=== PATIENT | female | born 1955 | race Two or more races ===

== ENCOUNTER 2023-02-12 21:15 | Emergency (ER) | payer OTHER, MEDICAID ==
[~2023-02-12] VITALS: Ht 162.6 cm; Wt 95.5 kg
[2023-02-12 21:23] VITALS: BP 145/69; PULSE 90; RESP 20; TEMP 99
[2023-02-12] MEDS ORDERED: SODIUM CHLORIDE 0.9% 1,000 ML IV ONE (22:30)
[2023-02-12] MEDS ORDERED: cefTRIAXone 1GM/50ML D5W 50 ML IV ONE (22:30)
[2023-02-12] MEDS ORDERED: ACETAMINOPHEN 325 MG TAB PO ONE (22:30)
[2023-02-12 22:45] LABS: Basophils # (auto) 0 10 ^3/uL (0-0.2); Basophils % (auto) 0.2 % (0.0-2.0); Eosinophils # (auto) 0.1 10 ^3/uL (0-0.8); Eosinophils % (auto) 1.3 % (0.0-7.0); Hematocrit 41.2 % (36.0-46.0); Hemoglobin 13.8 g/dL (12.2-16.2); Lymphocytes # (auto) 1.4 10 ^3/uL (0.4-5.4); Lymphocytes % (auto) 12.6 % (10.0-50.0); Mean Corpuscular Hgb Conc. 33.6 g/dL (32.0-36.0); Mean Corpuscular Volume 89.3 fL (80.0-100.0); Monocytes # (auto) 1.4 10 ^3/uL (0-1.3); Neutrophils # (auto) 7.9 10 ^3/uL (1.6-8.6); Neutrophils % (auto) 72.9 % (37.0-80.0); Red Blood Cells 4.62 10^6/uL (4.0-5.20); Red Cell Distribution Width 13.8 % (11.8-14.3); White Blood Cell 10.8 10^3/uL (4.4-10.8)
[2023-02-12 22:46] LABS: Urine Bacteria NONE SEEN /hpf (None Seen); Urine Blood Negative /uL (Negative); Urine Clarity HAZY (Clear); Urine Color Yellow (Yellow); Urine Mucus FEW (None Seen); Urine Protein, UAD 1+ (Negative); Urine Specific Gravity 1.026 (1.001-1.035); Urine Urobilinogen Normal (Negative); Urine WBC 11 /hpf (0 - 5); Urine pH 5.5 (5.0-8.0)
[2023-02-12] MEDS ORDERED: AMOX875T4 PO (22:57)
[2023-02-12] MEDS ORDERED: ACET500T58 PO (22:57)
[2023-02-12 23:08] VITALS: O2SAT 96
[2023-02-12 23:11] LABS: Alanine Aminotransferase 17 U/L (7-40); Albumin 4.5 g/dL (3.2-4.8); Alkaline Phosphatase 86 U/L (46-116); Anion Gap 8 (5-15); Aspartate Aminotransferase 20 U/L (13-40); BUN/Creatinine Ratio 15.7 (10.0-20.0); Bilirubin, Total 0.8 mg/dL (0.2-1.0); Blood Urea Nitrogen 14 mg/dL (9-23); Calcium 9.2 mg/dL (8.7-10.4); Carbon Dioxide 25 mmol/L (20-30); Chloride 104 mmol/L (98-107); Glucose 85 mg/dL (74-106); Potassium 3.4 mmol/L (3.5-5.1); Sodium 137 mmol/L (136-145); Total Protein 7.1 g/dL (5.7-8.2)
[2023-02-12 23:14] LABS: COVID19 ANTIGEN SOFIA FIA NEGATIVE (NEGATIVE)
[2023-02-12 23:15] LABS: Rapid Influenza A Negative (Negative); Rapid Influenza B Negative (Negative)
[2023-02-12] MEDS ORDERED: POTASSIUM CHL 20 Meq TABLET PO ONE (23:30)
== END 2023-02-13 00:47 | disposition home or self-care (01) ==
LOC: ER 21:15 → EDBD 21:15 → ER 02-13 00:47
DX: N39.0 Urinary tract infection, site not specified (principal); J01.90 Acute sinusitis, unspecified; E86.0 Dehydration; Z20.822 Contact with and (suspected) exposure to COVID-19
CPT/HCPCS: 36415; 80053; 81001; 85025; 87426; 87804; 96365; 99284; J0696; J7030

== ENCOUNTER 2023-04-17 14:17 | Emergency (ER) | payer OTHER, MEDICAID ==
[~2023-04-17] VITALS: Ht 162.6 cm; Wt 98.0 kg
[~2023-04-17 14:17] MED LIST: ACET500T58 PO; AMOX875T4 PO
[2023-04-17 14:30] VITALS: BP 166/84; PULSE 102; RESP 18; O2SAT 99
== END 2023-04-17 22:22 | disposition left against medical advice (07) ==
LOC: ER 14:17
DX: R21 Rash and other nonspecific skin eruption (principal); Z53.21 Procedure and treatment not carried out due to patient leaving prior to being seen by health care provider

== ENCOUNTER → 2023-04-18 | Emergency (ER) | payer OTHER, MEDICAID ==
[~2023-04-18] VITALS: Ht 162.6 cm; Wt 98.3 kg
[2023-04-18 15:11] VITALS: BP 137/85; PULSE 86; RESP 18; O2SAT 99
== END | disposition left against medical advice (07) ==
LOC: ER 14:46
DX: R21 Rash and other nonspecific skin eruption (principal); Z53.21 Procedure and treatment not carried out due to patient leaving prior to being seen by health care provider